=== PATIENT | male | born 1930 | race Caucasian/White ===

== ENCOUNTER 2017-09-21 13:57 | Inpatient (IN) | payer MEDICARE ==
[~2017-09-21] VITALS: Ht 172.7 cm; Wt 66.7 kg
--- NOTE | 2017-09-21 | NUR ---
notes: pt is resting on his side. stable vital sign. explained to him his medication. agree and understand. needs attended. bed alarm on. call light in reach. pt blood sugar is 72, pt is given a snack. needs attended. call light in reach. will monitor. Addendum: 09/22/17 at 0049 by Hitesh Fritz RN time is intended for 09-21-2017 at 2200
[~2017-09-21 13:57] MED LIST: AMOX-426 PO; ASA81 PO; ATEN50TA PO; CARV25TA55 PO; DABI150C PO; FINA5TAB3 PO; FURO-150 PO; GLIM1TAB PO; GUAI100S14 PO; IPRA4AER INH; L.RH1CAP PO; LISI-600 PO; ONDA4TAB5 PO; POTA-118 PO; SIMV40TA2 PO; SPIR25TA PO; TAMS0.4C96 PO
[2017-09-21 14:00] VITALS: BP_SYST 134
--- NOTE | 2017-09-21 14:01 | NUR ---
Placed in room 03 . Placed on cafeteria monitor, blood pressure machine and pulse oximeter. To gown for exam. Side rails up.
--- NOTE | 2017-09-21 14:05 | NUR ---
Pt brought by daughter , Luis&Ox4, pt presents to ER with SOB, speaking in short sentences, weakness for the last three days, chest retractions noted, afebrile, skin pink and warm, VSS at this time.
--- NOTE | 2017-09-21 14:10 | NUR ---
Dr Whitten at bedside examining patient
[2017-09-21] MEDS ORDERED: LEVOFLOXACIN 500 MG/D5W 100 ML IV ONE (14:30)
[2017-09-21] MEDS ORDERED: ALBUTEROL SULFATE 0.083% 2.5 MG/3 ML VIAL.NEB INH ONE (14:30)
--- NOTE | 2017-09-21 14:35 | NUR ---
Respiratory at bedside to administer breathing tx.
[2017-09-21 14:45] LABS: BASOPHILS % (AUTO) 0.3 % (0.0-2.0); HEMATOCRIT 41.5 % (36-54); HEMOGLOBIN 13.7 g/dL (14.0-18.0); LYMPHOCYTES # (AUTO) 1.5 K/uL (1.0-5.5); LYMPHOCYTES % (AUTO) 30.1 % (20.5-51.5); MEAN CORPUSCULAR HEMOGLOBIN 27 pg (27-31); MEAN CORPUSCULAR HGB CONC 33 % (32-36); MEAN CORPUSCULAR VOLUME 82 fL (79.0-98.0); MONOCYTES # (AUTO) 0.3 K/uL (0.0-1.0); MONOCYTES % (AUTO) 6.2 % (1.7-9.3); NEUTROPHILS % (AUTO) 62.4 % (40.0-70.0); PLATELET COUNT (AUTO) 137 K/uL (130-430); RED BLOOD CELL COUNT(AUTO) 5.05 MIL/uL (4.2-6.2); RED CELL DISTRIBUTION WIDTH 16.2 % (9.0-15.0); WHITE BLOOD COUNT (AUTO) 4.9 K/uL (4.8-10.8)
[2017-09-21 14:54] LABS: ANION GAP 5 (5-15); CALCIUM 9.5 mg/dL (8.4-11.0); CHLORIDE 101 mmol/L (98-107); CREATININE 1.43 mg/dL (0.55-1.30); GLUCOSE 156 mg/dL (70-99); POTASSIUM 4.2 mmol/L (3.5-5.1); SODIUM SERUM 134 mmol/L (136-145); UREA NITROGEN, BLOOD 18 mg/dL (8-21)
[2017-09-21 14:55] LABS: INR 1.5 (0.80-1.20); PROTHROMBIN TIME 15.2 SECS (9.5-12.5)
[2017-09-21 14:59] LABS: ALANINE AMINOTRANSFERASE 22 U/L (12-78); ALBUMIN 3.6 g/dL (3.4-4.8); ASPARTATE AMINOTRANSFERASE 15 U/L (10-37); TOTAL BILIRUBIN 1.7 mg/dL (0.0-1.0)
[2017-09-21 15:03] LABS: BILIRUBIN,URINE NEGATIVE (NEGATIVE); BLOOD, URINE NEGATIVE (NEGATIVE); CLARITY/URINE CLEAR (CLEAR); COLOR,URINE YELLOW (YELLOW); GLUCOSE,URINE NEGATIVE (NEGATIVE); KETONES,URINE NEGATIVE (NEGATIVE); LEUKOCYTE ESTERASE ,URINE NEGATIVE (NEGATIVE); NITRITE, URINE NEGATIVE (NEGATIVE); PROTEIN URINE NEGATIVE (NEGATIVE); UROBILINOGEN,URINE 0.2 (0.2-1.0)
--- NOTE | 2017-09-21 15:50 | NUR ---
Dr. Whitten at bedside speaking to pt and family.
[2017-09-21] MEDS ORDERED: ONDANSETRON HCL 4 MG/2 ML VIAL IVP ONE (16:00)
[2017-09-21] MEDS ORDERED: FUROSEMIDE 40 MG/4 ML VIAL IVP ONE (16:00)
[2017-09-21] MEDS ORDERED: NACL 0.9% 1,000 ML IV ONE (16:15)
[2017-09-21] MEDS ORDERED: ATENOLOL 50 MG TABLET (TENORMIN) PO SCH (16:15)
[2017-09-21] MEDS ORDERED: IPRATROPIUM/ALBUTEROL SULFATE 3 ML AMPUL.NEB INH PRN (16:15)
--- NOTE | 2017-09-21 16:28 | NUR ---
Patient will be admitted to care of Dr. Gonsalves. Admitted to tele unit. Will go to room 112B. Belongings list completed. Summary report printed. Report will be given at bedside.
[2017-09-21] MEDS ORDERED: MUPIROCIN 2% TOPICAL OINTMENT 22 GM NS PRN (16:30)
[2017-09-21] MEDS ORDERED: MORPHINE 2 MG/ML INJ. SYRINGE IVP PRN ×2 (16:30)
[2017-09-21] MEDS ORDERED: NACL 0.9% 1,000 ML IV SCH (16:30)
[2017-09-21] MEDS ORDERED: MAGNESIUM SULFATE 50 ML IV PRN (16:30)
[2017-09-21] MEDS ORDERED: ONDANSETRON HCL 4 MG/2 ML VIAL IVP PRN (16:30)
[2017-09-21] MEDS ORDERED: DOCUSATE SODIUM 100 MG CAPSULE PO PRN (16:30)
[2017-09-21] MEDS ORDERED: LORazepam 2 MG/ML VIAL IVP PRN (16:30)
[2017-09-21] MEDS ORDERED: ACETAMINOPHEN 325 MG TABLET PO PRN (16:30)
[2017-09-21] MEDS ORDERED: POTASSIUM CHLORIDE 20 MEQ TAB.PRT.SR PO PRN (16:30)
[2017-09-21] MEDS: LORATADINE 10 MG TABLET PO ONE ×2 (16:45→18:23)
[2017-09-21] MEDS ORDERED: DEXTROSE 50% JECT 50 ML DISP.SYRIN IVP PRN (16:45)
[2017-09-21] MEDS ORDERED: FAMOTIDINE 20 MG TABLET PO ONE (16:45)
[2017-09-21 16:54] LABS: FREE T4 (FREE THYROXINE) 0.8 ng/dL (0.6-1.6); THYROID STIMULATING HORMONE 1.96 uIu/mL (0.34-4.82)
[2017-09-21] MEDS ORDERED: POTASSIUM CHLORIDE 10 MEQ TAB.PRT.SR PO ONE (17:00)
[2017-09-21] MEDS ORDERED: SPIRONOLACTONE 25 MG TABLET (ALDACTONE) PO ONE (17:00)
[2017-09-21] MEDS ORDERED: methylPREDNISolone SOD SUCC 40 MG/ML VIAL IVP ONE (17:00)
[2017-09-21] MEDS ORDERED: TAMSULOSIN HCL 0.4 MG CAP PO ONE (17:00)
[2017-09-21] MEDS ORDERED: SIMVASTATIN 40 MG TABLET PO ONE (17:00)
[2017-09-21] MEDS ORDERED: LISINOPRIL 20 MG TABLET PO ONE (17:00)
--- NOTE | 2017-09-21 17:01 | NUR ---
Admission: Received from ER on a gurney with the diagnosis of Acute Respiratory Failure. Patient is alert and oriented, ambulatory. Accompanied by daughter Marky Davis. Oriented to room and unit
--- NOTE | 2017-09-21 17:11 | NUR ---
CONSULTATION PAGED REASON FOR CONSULTATION:ACUTE RESPIRATORY FAILURE WAS CONSULT CALLED?Y PERSON WHO WAS NOTIFIED:EMILY CONSULTING PHYSICIAN:BLAKE GALINDO (MIKE WILLIS LOIN TRIMMER) WHANAU SUPPORT WORKER SPECIALTY:PULMONARY WHANAU SUPPORT WORKER PHONE NUMBER:[phone] ORDERING PHYSICIAN:
--- NOTE | 2017-09-21 17:14 | NUR ---
CONSULTATION PAGED REASON FOR CONSULTATION:WORSENING CHF WAS CONSULT CALLED?Y PERSON WHO WAS NOTIFIED:EMILY CONSULTING PHYSICIAN:SUAD BUCK BUTCHER MEAT SPECIALTY:CARDIO BUTCHER MEAT PHONE NUMBER:[phone] ORDERING PHYSICIAN:
[2017-09-21 17:25] VITALS: BP_SYST 113
[2017-09-21 17:28] VITALS: BP_SYST 132
--- NOTE | 2017-09-21 17:30 | NUR ---
INITIAL ASSESSMENT: INITIAL ASSESSMENT DONE. ON O2 2L/NC,GOOD SATURATION. DAUGHTER AT THE BEDSIDE.NO COMPLAINED MADE.
[2017-09-21] MEDS: INSULIN ASPART 100 UNITS/ML, 10 ML VIAL (NovoLOG) SUBCUT PRN (18:27)
--- NOTE | 2017-09-21 18:27 | NUR ---
BLOOD SUGAR: BLOOD SUGAR TAKEN WITH INSULIN COVERAGE GIVEN PER SLIDING SCALE.
--- NOTE | 2017-09-21 18:57 | NUR ---
CLOSING NOTES: PATIENT EATING DINNER. CALL LIGHT WITH IN REACH. BED LOCKED AT LOWEST POSITION. CONTINUE TO MONITOR.
--- NOTE | 2017-09-21 19:50 | NUR ---
initial notes: pt is awake, alert, oriented x 3, on his bed laying down to his side. comfortable. no sob, not distress. no pain. vital are stable and wnl. explained poc tonight and his medication. pt is requesting for his sleeping pills, will page for order. neds attended. melissa light in reach. side rails up. lowest bed position. will monitor.
[2017-09-21 19:52] VITALS: BP_SYST 121
[2017-09-21] MEDS: IPRATROPIUM/ALBUTEROL SULFATE 3 ML AMPUL.NEB INH SCH (20:01)
[2017-09-21] MEDS: BUDESONIDE 0.5 MG/2 ML AMPUL.NEB INH SCH (20:13)
--- NOTE | 2017-09-21 20:31 | NUR ---
paged paged for Dr Gonsalves, dialed . picked up call himself.
--- NOTE | 2017-09-21 20:35 | NUR ---
dr. hernandez call back- told that the pt is asking for sleeping pills, md order ambien 5mg po prn for insomia.
[2017-09-21] MEDS: methylPREDNISolone SOD SUCC 40 MG/ML VIAL IVP SCH (21:32)
[2017-09-21] MEDS: FAMOTIDINE 20 MG TABLET PO SCH (21:34)
[2017-09-21] MEDS: CARVEDILOL 25 MG TABLET (COREG) PO SCH (21:34)
[2017-09-21] MEDS: ZOLPIDEM TARTRATE 5 MG TABLET PO PRN (21:34)
[2017-09-21] MEDS: PIPERACILLIN/TAZOBACTAM 2.25 GM in NS 50 ML IV SCH (21:35)
[2017-09-21] MEDS: DABIGATRAN ETEXILATE MESYLATE 75 MG CAPSULE PO SCH (21:36)
--- NOTE | 2017-09-22 00:49 | NUR ---
notes: resting, comfortable. bed alarm on. call light in reach. will monitor.
[2017-09-22 00:50] VITALS: BP_SYST 135
[2017-09-22] MEDS: IPRATROPIUM/ALBUTEROL SULFATE 3 ML AMPUL.NEB INH SCH ×6 (01:15→19:58)
--- NOTE | 2017-09-22 02:00 | NUR ---
round notes: pt is resting, no sob. comfortable. bed alarm on. call light in reach. will monitor.
--- NOTE | 2017-09-22 03:45 | NUR ---
round: pt wakes up. want to use bathroom. assisted to bathroom. bring back to bed flaquita wilde. needs attended. will monitor.
[2017-09-22] MEDS: methylPREDNISolone SOD SUCC 40 MG/ML VIAL IVP SCH ×3 (05:29→20:24)
[2017-09-22] MEDS: PIPERACILLIN/TAZOBACTAM 2.25 GM in NS 50 ML IV SCH ×3 (05:29→21:45)
--- NOTE | 2017-09-22 06:00 | NUR ---
round notes: pt is resting. no sob. not distress. am antibiotic given. side rails up. lowest bed position. bed alarm on. will continue to monitor.
[2017-09-22] MEDS: GLIMEPIRIDE 2 MG TABLET PO SCH (06:36)
[2017-09-22] MEDS: INSULIN ASPART 100 UNITS/ML, 10 ML VIAL (NovoLOG) SUBCUT PRN ×4 (06:39→20:26)
[2017-09-22 06:58] LABS: ANION GAP 8 (5-15); CALCIUM 9.3 mg/dL (8.4-11.0); CHLORIDE 101 mmol/L (98-107); CREATININE 1.45 mg/dL (0.55-1.30); GLUCOSE 178 mg/dL (70-99); POTASSIUM 4.2 mmol/L (3.5-5.1); SODIUM SERUM 132 mmol/L (136-145); UREA NITROGEN, BLOOD 25 mg/dL (8-21)
[2017-09-22 07:00] LABS: BASOPHILS % (AUTO) 0.4 % (0.0-2.0); EOSINOPHILS # (AUTO) 0.1 K/uL (0.0-0.4); EOSINOPHILS % (AUTO) 0.9 % (0.0-4.0); HEMATOCRIT 39.4 % (36-54); HEMOGLOBIN 13.1 g/dL (14.0-18.0); LYMPHOCYTES # (AUTO) 0.5 K/uL (1.0-5.5); LYMPHOCYTES % (AUTO) 7.9 % (20.5-51.5); MEAN CORPUSCULAR HEMOGLOBIN 28 pg (27-31); MEAN CORPUSCULAR HGB CONC 33 % (32-36); MEAN CORPUSCULAR VOLUME 83 fL (79.0-98.0); MONOCYTES % (AUTO) 0.6 % (1.7-9.3); NEUTROPHILS # (AUTO) 5.8 K/uL (1.8-7.7); NEUTROPHILS % (AUTO) 90.2 % (40.0-70.0); PLATELET COUNT (AUTO) 121 K/uL (130-430); RED BLOOD CELL COUNT(AUTO) 4.72 MIL/uL (4.2-6.2); RED CELL DISTRIBUTION WIDTH 16.2 % (9.0-15.0)
[2017-09-22 07:02] LABS: CHOLESTEROL 139 mg/dL (<200); HDL CHOLESTEROL 53 mg/dL (>45); LDL CHOLESTEROL 79 mg/dL (<100); TRIGLYCERIDES 26 mg/dL (30-150)
[2017-09-22] MEDS: BUDESONIDE 0.5 MG/2 ML AMPUL.NEB INH SCH (07:28)
--- NOTE | 2017-09-22 07:30 | NUR ---
AM ROUNDS: BEDSIDE REPORT GIVEN BY NIGHT NURSE ALFONZO Jaime PATIENT IN THE TOILET. NO DISTRESS. THEN PATIENT WENT BACK TO HIS BED,WITH STEADY GAIT. CONTINUE TO MONITOR.BED ALARM ON. CALL LIGHT WITH IN REACH. BED LOCKED AT LOWEST POSITION.
[2017-09-22 07:35] LABS: WHITE BLOOD COUNT (AUTO) 6.4 K/uL (4.8-10.8)
--- NOTE | 2017-09-22 07:41 | NUR ---
closing: pt is awake, alert.assisted to bathroom. ivf infusing well. sugar check taken and covered per sliding scale. needs attended the whole shift. assisted back to his bed. needs attended. call light in reach. pt is ready for breakfast. bed side report given to am rn.
[2017-09-22 08:17] VITALS: BP_SYST 133
[2017-09-22] MEDS ORDERED: LORATADINE 10 MG TABLET PO SCH (09:00)
[2017-09-22] MEDS ORDERED: FUROSEMIDE 20 MG TABLET PO SCH (09:00)
[2017-09-22] MEDS: ASPIRIN 81 MG TAB.CHEW PO SCH (09:31)
[2017-09-22] MEDS: TAMSULOSIN HCL 0.4 MG CAP PO SCH (09:31)
[2017-09-22] MEDS: SPIRONOLACTONE 25 MG TABLET (ALDACTONE) PO SCH (09:31)
[2017-09-22] MEDS: LISINOPRIL 20 MG TABLET PO SCH (09:32)
[2017-09-22] MEDS: DABIGATRAN ETEXILATE MESYLATE 75 MG CAPSULE PO SCH ×2 (09:32→20:25)
[2017-09-22] MEDS: SIMVASTATIN 40 MG TABLET PO SCH (09:33)
[2017-09-22] MEDS: FAMOTIDINE 20 MG TABLET PO SCH ×2 (09:33→20:26)
[2017-09-22] MEDS: CARVEDILOL 25 MG TABLET (COREG) PO SCH ×2 (09:33→20:27)
[2017-09-22] MEDS: POTASSIUM CHLORIDE 10 MEQ TAB.PRT.SR PO SCH (09:34)
--- NOTE | 2017-09-22 10:05 | NUR ---
RN ROUNDING: PATIENT AMBULATING IN THE HALLWAY,WITH STEADY GAIT.THEN BACK TO HIS ROOM. NO SOB NOTED.
[2017-09-22] MEDS ORDERED: FUROSEMIDE 40 MG/4 ML VIAL IVP ONE (10:15)
--- NOTE | 2017-09-22 11:06 | NUR ---
BLOOD SUGAR: BLOOD SUGAR TAKEN,WITH INSULIN COVERAGE GIVEN PER SLIDING SCALE.NO COMPLICATIONS NOTED.
[2017-09-22 11:11] VITALS: BP_SYST 122
[2017-09-22] MEDS: FINASTERIDE 5 MG TABLET (PROSCAR) PO SCH (11:11)
--- NOTE | 2017-09-22 14:25 | NUR ---
RN ROUNDS: RESTING. STABLE NO COMPLAINED MADE.
[2017-09-22 15:20] VITALS: BP_SYST 114
--- NOTE | 2017-09-22 16:10 | NUR ---
AMBULATE: PATIENT AMBULATED WITH HIS DAUGHTER TO THE HALLWAY.THEN ACCOMPANIED PATIENT BACK TO HIS ROOM. NO SOB.
[2017-09-22] MEDS: PEG 400/HYPROMELLOSE/GLYCERIN 15 ML DROPS OP SCH ×2 (17:53→20:27)
--- NOTE | 2017-09-22 17:57 | NUR ---
BLOOD SUGAR: BLOOD SUGAR TAKEN,WITH INSULIN COVERAGE GIVEN PER SLIDING SCALE.NO COMPLICATIONS NOTED.
--- NOTE | 2017-09-22 18:50 | NUR ---
CLOSING NOTES: PATIENT ON THE BED. FINISHED HIS DINNER. NO NEEDS THIS TIME. CALL LIGHT WITH IN REACH. BED LOCKED AT LOWEST POSITION.
--- NOTE | 2017-09-22 19:15 | NUR ---
OPENING NOTES Late entry due to patient care. Bedside report received from day shift nurse. Patient received sitting up at side of the bed starting outside the window. Patient is AOx3, no complaints of pain. No s/s of acute distress. Breathing is even and unlabored. Skin is warm and dry to touch, no signs of hypoglycemia. Call light is with patient, instructed to call for any assistance, patient verbalized understanding. Will continue to monitor.
[2017-09-22 20:00] VITALS: BP_SYST 110
[2017-09-22] MEDS ORDERED: FUROSEMIDE 40 MG/4 ML VIAL IVP SCH (21:00)
--- NOTE | 2017-09-22 21:00 | NUR ---
ROUNDS Patient sitting up in bed at this time, resting. No s/s of acute distress. Patient denies any pain. Breathing is even and unlabored. Skin warm and dry to touch, no signs of hypoglycemia noted. Snacks offered but patient refused. IV site shows no signs of infection or infiltration, patent. Call light with patient, instructed to call for any assistance, patient verbalized understanding. Will continue to monitor.
[2017-09-22] MEDS: ZOLPIDEM TARTRATE 5 MG TABLET PO PRN (22:26)
--- NOTE | 2017-09-22 22:26 | NUR ---
SLEEPING PILL Patient requested to have his sleeping pill, ambien administered per PRN orders. Will continue to monitor and reassess.
[2017-09-23] VITALS: BP_SYST 109
--- NOTE | 2017-09-23 | NUR ---
ROUNDS Patient lying in bed, awake. Patient states that the Ambien is ineffective. Repositioned patient for comfort and turned on some music. Call light with patient. Will continue to monitor and reassess.
--- NOTE | 2017-09-23 02:00 | NUR ---
ROUNDS Patient sitting up in bed at this time. No s/s of acute distress. Breathing even and unlabored. Patient offered some snacks and milk. Call light with patient. Will continue to monitor and reassess.
--- NOTE | 2017-09-23 03:30 | NUR ---
WALKING IN THE HALLWAY Patient walking down the hallway assisted by RNTequila. No s/s of acute distress. No SOB. Patient assisted back to his bed. Call light with patient. Will continue to monitor.
--- NOTE | 2017-09-23 05:10 | NUR ---
ROUNDS Patient in bed sleeping at this time. No signs of discomfort noted. Chest rise and fall even bilaterally. Call light with patient. Will continue to monitor.
[2017-09-23] MEDS: INSULIN ASPART 100 UNITS/ML, 10 ML VIAL (NovoLOG) SUBCUT PRN (06:11)
[2017-09-23] MEDS: GLIMEPIRIDE 2 MG TABLET PO SCH (06:12)
[2017-09-23] MEDS: PIPERACILLIN/TAZOBACTAM 2.25 GM in NS 50 ML IV SCH (06:12)
--- NOTE | 2017-09-23 06:57 | NUR ---
CLOSING NOTES Patient in bed sleeping at this time. No s/s of acute distress noted. Breathing is even and unlabored. HOB is raised. IV site shows no signs of infiltration or infection. No active bleeding noted. All of patient's needs met throughout shift. Fall and safety precautions maintained throughout shift. Will continue to monitor until patient care is endorsed to oncoming day shift nurse.
[2017-09-23 07:22] LABS: ANION GAP 9 (5-15); CALCIUM 9.6 mg/dL (8.4-11.0); CHLORIDE 100 mmol/L (98-107); CREATININE 1.64 mg/dL (0.55-1.30); GLUCOSE 178 mg/dL (70-99); POTASSIUM 4.1 mmol/L (3.5-5.1); SODIUM SERUM 136 mmol/L (136-145); UREA NITROGEN, BLOOD 39 mg/dL (8-21)
[2017-09-23 07:29] LABS: BASOPHILS % (AUTO) 0.3 % (0.0-2.0); EOSINOPHILS % (AUTO) 0.1 % (0.0-4.0); HEMATOCRIT 38.7 % (36-54); HEMOGLOBIN 12.9 g/dL (14.0-18.0); LYMPHOCYTES # (AUTO) 0.5 K/uL (1.0-5.5); LYMPHOCYTES % (AUTO) 4.5 % (20.5-51.5); MEAN CORPUSCULAR HEMOGLOBIN 28 pg (27-31); MEAN CORPUSCULAR HGB CONC 33 % (32-36); MEAN CORPUSCULAR VOLUME 82 fL (79.0-98.0); MONOCYTES # (AUTO) 0.2 K/uL (0.0-1.0); MONOCYTES % (AUTO) 2.1 % (1.7-9.3); NEUTROPHILS # (AUTO) 10.7 K/uL (1.8-7.7); PLATELET COUNT (AUTO) 124 K/uL (130-430); RED BLOOD CELL COUNT(AUTO) 4.71 MIL/uL (4.2-6.2); RED CELL DISTRIBUTION WIDTH 15.9 % (9.0-15.0); WHITE BLOOD COUNT (AUTO) 11.4 K/uL (4.8-10.8)
[2017-09-23 07:31] LABS: ALANINE AMINOTRANSFERASE 21 U/L (12-78); ALBUMIN 3.3 g/dL (3.4-4.8); ASPARTATE AMINOTRANSFERASE 15 U/L (10-37); PHOSPHORUS 4.2 mg/dL (2.7-4.5); TOTAL BILIRUBIN 0.9 mg/dL (0.0-1.0)
[2017-09-23 07:50] VITALS: BP_SYST 102
--- NOTE | 2017-09-23 07:50 | NUR ---
INITIAL ROUNDS Received pt AAOx3, forgetful at times, no s/s resp distress, no c/o pain or discomfort. Pt stated he is very tired this morning-per overnight caregiver report, pt was up most of the night walking around the unit with steady gait. Plan of care for the day reviewed with pt-pt stated he hopes he can go home today. Pain management, skin, and safety discussed-teach back down-will continue to reinforce all teachings. Call light within reach.
[2017-09-23] MEDS: TAMSULOSIN HCL 0.4 MG CAP PO SCH (10:21)
[2017-09-23] MEDS: SIMVASTATIN 40 MG TABLET PO SCH (10:21)
[2017-09-23] MEDS: FAMOTIDINE 20 MG TABLET PO SCH (10:22)
[2017-09-23] MEDS: ASPIRIN 81 MG TAB.CHEW PO SCH (10:22)
[2017-09-23] MEDS: POTASSIUM CHLORIDE 10 MEQ TAB.PRT.SR PO SCH (10:22)
[2017-09-23] MEDS: SPIRONOLACTONE 25 MG TABLET (ALDACTONE) PO SCH (10:22)
[2017-09-23] MEDS: CARVEDILOL 25 MG TABLET (COREG) PO SCH (10:23)
[2017-09-23] MEDS: LISINOPRIL 20 MG TABLET PO SCH (10:24)
[2017-09-23] MEDS: FINASTERIDE 5 MG TABLET (PROSCAR) PO SCH (10:24)
[2017-09-23] MEDS: methylPREDNISolone SOD SUCC 40 MG/ML VIAL IVP SCH (10:24)
[2017-09-23] MEDS: PEG 400/HYPROMELLOSE/GLYCERIN 15 ML DROPS OP SCH (10:26)
[2017-09-23] MEDS: DABIGATRAN ETEXILATE MESYLATE 75 MG CAPSULE PO SCH (10:30)
--- NOTE | 2017-09-23 11:03 | NUR ---
MD VISIT/AMA Pt seen by Dr. Horowitz twice-MD informed pt that he needs to stay for 1 more day of IV antibiotics-pt stated he needs to go home and is insisting on leaving. Pt's daughter Susan called and informed, she spoke with her father who still insists on leaving.
--- NOTE | 2017-09-23 12:21 | NUR ---
AMA: Patient does not wish to proceed with medical care recommended by Dr. Horowitz. Patient & patient's daughter Gale given information related to possible complications, up to and including , which could occur as a result of leaving hospital at this time. Patient verbalized his understanding of risks involved leaving against medical advice. Patient has signed AMA form. Patient's daughter picked up patient with his belongings. Patient left floor ambulatory in no distress.
[2017-09-23] MEDS ORDERED: FUROSEMIDE 40 MG TABLET PO SCH (21:00)
[2017-09-24 04:06] LABS: T4 (THYROXINE) 8.5 ug/dL (4.5-12.0)
== END 2017-09-23 12:21 | disposition left against medical advice (07) | DRG 177 ==
LOC: SED 13:57 → STU 16:08
PROVIDERS: ADMIT Family Medicine; ATTEND Family Medicine
DX: J69.0 Pneumonitis due to inhalation of food and vomit (principal); N17.0 Acute kidney failure with tubular necrosis; I50.43 Acute on chronic combined systolic (congestive) and diastolic (congestive) heart failure; J96.01 Acute respiratory failure with hypoxia; I13.0 Hypertensive heart and chronic kidney disease with heart failure and stage 1 through stage 4 chronic kidney disease, or unspecified chronic kidney disease; J44.9 Chronic obstructive pulmonary disease, unspecified; I25.10 Atherosclerotic heart disease of native coronary artery without angina pectoris; E78.5 Hyperlipidemia, unspecified; N40.0 Benign prostatic hyperplasia without lower urinary tract symptoms; I48.2 Chronic atrial fibrillation; E11.22 Type 2 diabetes mellitus with diabetic chronic kidney disease; N28.1 Cyst of kidney, acquired; I25.5 Ischemic cardiomyopathy; F03.90 Unspecified dementia, unspecified severity, without behavioral disturbance, psychotic disturbance, mood disturbance, and anxiety; J06.9 Acute upper respiratory infection, unspecified; E11.65 Type 2 diabetes mellitus with hyperglycemia; Z53.21 Procedure and treatment not carried out due to patient leaving prior to being seen by health care provider; Z79.899 Other long term (current) drug therapy; Z95.0 Presence of cardiac pacemaker; Z79.51 Long term (current) use of inhaled steroids; Z79.82 Long term (current) use of aspirin; I25.2 Old myocardial infarction; Z95.1 Presence of aortocoronary bypass graft; Z87.01 Personal history of pneumonia (recurrent); Z82.3 Family history of stroke; Z90.49 Acquired absence of other specified parts of digestive tract; Z82.0 Family history of epilepsy and other diseases of the nervous system; Z79.02 Long term (current) use of antithrombotics/antiplatelets; Z87.891 Personal history of nicotine dependence
CPT/HCPCS: 36415; 36600; 71045; 74018; 76604; 76700-TC; 80048; 80053; 80061; 81003; 82140-TC; 82150-TC; 82803-TC; 82962; 83605; 83615-TC; 83690-TC; 83735-TC; 83880; 84100-TC; 84436; 84439; 84443-TC; 84479; 84480; 84484; 85025; 85610-TC; 87040-TC; 93005; 94640; 94760; 96365; 96375; 99285; J1030; J1815; J1940; J1956; J2270; J2405; J2543; J7030; J7613; J7620; J7626

== ENCOUNTER 2017-12-07 18:00 | Inpatient (IN) | payer MEDICARE ==
[~2017-12-07] VITALS: Ht 172.7 cm; Wt 66.7 kg
[2017-12-07 18:00] VITALS: BP_SYST 114
[~2017-12-07 18:00] MED LIST changes: -AMOX-426 PO; -ASA81 PO; -ATEN50TA PO; -GUAI100S14 PO; -L.RH1CAP PO; -POTA-118 PO; -SPIR25TA PO
--- NOTE | 2017-12-07 18:00 | NUR ---
Pt placed in hallway by Haim QUIROGA
--- NOTE | 2017-12-07 18:20 | NUR ---
PT COMPLAINS OF NAUSEA AND DIZZINESS SINCE THIS MORNING, DENIES VOMITING. PATIENT STATES SHORTNESS OF BREATHE WHEN MOVING FROM CHAIR TO GURNEY. PATIENT FAMILY AT BEDSIDE. PATIENT ABLE TO SPEAK IN FULL SENTENCES AND VERBALIZE NEEDS.
--- NOTE | 2017-12-07 18:40 | NUR ---
Patient moved to Bed 4.
--- NOTE | 2017-12-07 18:55 | NUR ---
PT ALERT, ABLE TO EXPRESS BASIC NEEDS, AND ATTENDED, O2 VIA NASAL CANNULA IN USE, DAUGHTER AT BEDSIDE, "HE HAD THE SAME PROBLEM WHEN HE WAS TAKEN HERE AND HE HAD PNEUMONIA".
--- NOTE | 2017-12-07 19:28 | NUR ---
ASSUMED CARE FROM ARUN MITTAL
[2017-12-07] MEDS ORDERED: NACL 0.9% 1,000 ML IV ONE (19:36)
[2017-12-07] MEDS ORDERED: ASPIRIN 81 MG TAB.CHEW PO ONE (19:45)
[2017-12-07 20:04] LABS: BASOPHILS % (AUTO) 0.6 % (0.0-2.0); EOSINOPHILS % (AUTO) 0.3 % (0.0-4.0); HEMATOCRIT 40.5 % (36-54); HEMOGLOBIN 12.8 g/dL (14.0-18.0); LYMPHOCYTES # (AUTO) 1.1 K/uL (1.0-5.5); LYMPHOCYTES % (AUTO) 22.6 % (20.5-51.5); MEAN CORPUSCULAR HEMOGLOBIN 27 pg (27-31); MEAN CORPUSCULAR HGB CONC 32 % (32-36); MEAN CORPUSCULAR VOLUME 84 fL (79.0-98.0); MONOCYTES # (AUTO) 0.3 K/uL (0.0-1.0); MONOCYTES % (AUTO) 6.5 % (1.7-9.3); NEUTROPHILS # (AUTO) 3.6 K/uL (1.8-7.7); PLATELET COUNT (AUTO) 120 K/uL (130-430); RED BLOOD CELL COUNT(AUTO) 4.84 MIL/uL (4.2-6.2); RED CELL DISTRIBUTION WIDTH 15.5 % (9.0-15.0)
[2017-12-07 20:18] LABS: ANION GAP 7 (5-15); CALCIUM 9.7 mg/dL (8.4-11.0); CHLORIDE 101 mmol/L (98-107); GLUCOSE 164 mg/dL (70-99); POTASSIUM 4.9 mmol/L (3.5-5.1); SODIUM SERUM 133 mmol/L (136-145); UREA NITROGEN, BLOOD 23 mg/dL (8-21)
[2017-12-07 20:26] LABS: ALANINE AMINOTRANSFERASE 17 U/L (12-78); ALBUMIN 3.4 g/dL (3.4-4.8); ASPARTATE AMINOTRANSFERASE 17 U/L (10-37); TOTAL BILIRUBIN 1.2 mg/dL (0.0-1.0)
[2017-12-07] MEDS ORDERED: PIPERACILLIN/TAZO 3.375 GM in NS 50 ML IV ONE (21:00)
[2017-12-07] MEDS ORDERED: FUROSEMIDE 40 MG/4 ML VIAL IVP ONE (21:15)
[2017-12-07] MEDS ORDERED: NITROGLYCERIN 1 INCH (GM) OINT. TP ONE (21:15)
--- NOTE | 2017-12-07 21:37 | NUR ---
Medication reconciliation completed with information provided by patient. Any prior medication reconciliation on file was reviewed and corrected.
[2017-12-07] MEDS ORDERED: PIPERACILLIN/TAZOBACTAM 3.375 GM/VIAL (ZOSYN) IV ONE (21:42)
--- NOTE | 2017-12-07 22:07 | NUR ---
ADMIT NOTE Received pt from XUAN Anand RN to the floor with a diagnosis of PNA and CHF. Admission process initiated. patient oriented to pain management, safety and call light-teach back done.
[2017-12-07 22:21] VITALS: BP_SYST 111
--- NOTE | 2017-12-07 22:50 | NUR ---
ENDORSED CARE Patient is stable, currently using urinal to void. Fall precautions in place, socks and yellow fall risk armband applied. Report and care endorsed to Leonora Barry RN.
--- NOTE | 2017-12-07 22:51 | NUR ---
RECEIVED BEDSIDE REPORT AT BEDSIDE.PATIENT TRYING TO REPOSITIONED HIMSELF FOR COMFORTS.SAT UP TO HIGH FOWLERS AND PLACED OXYGEN TO EASE LABORED BREATHING. VOIDED VIA URINAL CLEAR TERESITA COLOR. IVF OF NS FROM ER INFUSING AT 100ML/HR.TO LFA #2O GAUGE. SITE CLEAR. SATURATION BY RT IS 97%.INSTRUCTED HOW TO USE CALL LIGHT AND BED FUNCTIONS.PATIENT AWAKE ORIENTED X2 ,FORGETFUL OF TIME . SCABS TO BOTH LEGS MORE ON LEFT HIPS. CODE STATUS DNR. HAS PACEMAKER TO LEFT UPPER CHEST. WILL MONITOR CLOSELY.
--- NOTE | 2017-12-07 23:10 | NUR ---
PAGED Luis PIÑAFOR ADMISSION ORDERS AND MED RECONCILIATION.
--- NOTE | 2017-12-07 23:30 | NUR ---
DR. WOOD ANSWERED PAGE. INFORMED CURRENT PATIENT CONDITION ,AND NEED OF MEDS REC. STATED WILL TAKE CARE OF IT.
[2017-12-07] MEDS ORDERED: ONDANSETRON 4 MG ODT TAB PO PRN (23:45)
[2017-12-08 00:30] VITALS: BP_SYST 114
--- NOTE | 2017-12-08 00:30 | NUR ---
ORDERS ARE IN COMPUTER ALREADY.
[2017-12-08] MEDS: IPRATROPIUM/ALBUTEROL SULFATE 3 ML AMPUL.NEB (DUONEB) INH PRN ×2 (01:23→21:09)
--- NOTE | 2017-12-08 01:50 | NUR ---
ASSISTED AT BEDSIDE TO STAND UP TO VOID. TOLERATED STANDING UP. HAS EXERTIONAL DYSPNEA WHEN BACK TO BED WITH NO OXYGEN. O2 PLACED ON ,EDUCATED TO USE AT ALL TIMES. EXTENSION TUBING CONNECTED..
[2017-12-08 02:12] VITALS: BP_SYST 114
--- NOTE | 2017-12-08 07:00 | NUR ---
CLOSING: STANDS UP TO VOID ,TAKES 10 MIN TO VOID STANDING. WITH EXERTIONAL DYSPNEA WHEN BACK TO BED. NO S/S OF ACUTE DISTRESS. CALL LIGHT WITHIN REACH. BED ALARM ON. BED IN LOW POSITION.
--- NOTE | 2017-12-08 07:20 | NUR ---
Opening Note patient using urinal at bedside, assisted to bedside commode, placed on nasal cannula because experiencing SOB, no complaints of pain at this, educated patient on use of call light for assistance, verbalized understanding, call light and bedside table left within reach, will be back to check on patient
[2017-12-08] MEDS: TAMSULOSIN HCL 0.4 MG CAP PO SCH ×2 (08:00→21:14)
[2017-12-08] MEDS: GLIMEPIRIDE 2 MG TABLET PO SCH (08:02)
[2017-12-08] MEDS: FINASTERIDE 5 MG TABLET (PROSCAR) PO SCH (08:02)
[2017-12-08] MEDS: CARVEDILOL 25 MG TABLET (COREG) PO SCH (08:02)
[2017-12-08] MEDS: LISINOPRIL 20 MG TABLET PO SCH (08:03)
[2017-12-08] MEDS: DABIGATRAN ETEXILATE MESYLATE 75 MG CAPSULE PO SCH ×2 (08:04→21:18)
--- NOTE | 2017-12-08 08:10 | NUR ---
Med Pass patient educated regarding meds, verbalized understanding, refused BP med this morning, stated he doesn't take it if BP is controlled, educated patient on risks of not taking med, verbalized understanding, tolerated meds well by mouth, no complaints of pain, safety precautions remain in place, bedside table and call light left within reach, will continue to monitor patient
[2017-12-08 08:43] VITALS: BP_SYST 101
[2017-12-08] MEDS ORDERED: IPRATROPIUM/ALBUTEROL SULFATE 120 PUFFS/4 GM INH INH SCH (09:00)
[2017-12-08] MEDS ORDERED: FUROSEMIDE 20 MG TABLET PO SCH (09:00)
--- NOTE | 2017-12-08 09:30 | NUR ---
Nutrition Update Tavo Scale 18 noted. Pt admitted for pneumonia and CHF. Diet: cardiac BMI: 23.6 kg/m2 RD to follow per nutrition care standards.
--- NOTE | 2017-12-08 10:53 | NUR ---
Patient Resting in Bed at this time, positioned to his side, removed O2 to assess saturations on room air, no signs of distress, no complaints of pain, safety precautions remain in place, bedside table and call light left within reach, will continue to monitor patient
[2017-12-08 11:42] VITALS: BP_SYST 95
--- NOTE | 2017-12-08 12:30 | NUR ---
Daughter Marcelle Visiting at this time, spoke with her earlier over the phone, stated father has been hospitalized for pneumonia recently, also stated patient went AMA last time he was in the hospital, patient is resting in bed, eyes closed, breathing unlabored on room air, he is positioned to his side, will continue to monitor
--- NOTE | 2017-12-08 13:36 | NUR ---
Patient on Bedside Commode at this time, no complaints of pain, no signs of distress, educated him on use of call light for assistance, verbalized understanding, safety precautions remain in place, bedside table and call light left within reach, will continue to monitor patient
--- NOTE | 2017-12-08 15:45 | NUR ---
Patient Resting in Bed eyes closed, breathing unlabored on nasal cannula, positioned to his side, symmetrical chest expansion, safety precautions in place, call light and bedside table left within reach, will continue to monitor
[2017-12-08 16:00] VITALS: BP_SYST 105
--- NOTE | 2017-12-08 17:59 | NUR ---
Patient Awake and Alert in bed, he is laying down positioned to his side, nasal cannula applied for comfort, no other needs at this time, educated patient on use of call light for assistance, verbalized understanding, safety precautions in place, call light and bedside table left within reach, will continue to monitor
--- NOTE | 2017-12-08 18:50 | NUR ---
Closing Note patient resting in bed, awake and alert, ate dinner, no signs of distress, breathing unlabored, symmetrical chest expansion, Dr. Munoz rounds, provided him with patient's daughter's phone number and requested to call her with updates, verbalized understanding, safety precautions remain in place, will endorse to tool and die technician nurse
[2017-12-08] MEDS ORDERED: DEXTROSE 50% JECT 50 ML DISP.SYRIN IVP PRN ×2 (19:15)
[2017-12-08 19:30] VITALS: BP_SYST 125
--- NOTE | 2017-12-08 19:36 | NUR ---
CONSULTATION PAGED/CALLED Reason for Consultation: CHF Person Who was Notified: ADINA Consulting Physician: Saud WOOD IS FORM BUILDER. Employer Relations Representative Specialty: Ordering Physician: Luis WOOD
--- NOTE | 2017-12-08 20:00 | NUR ---
INITIAL NOTES: BEDSIDE REPORT EARLIER DONE WITH AM RN.PATIENT IN BED AWAKE ALERT ,ORIENTED X3.ON HIS RIGHT SIDE POSITION . ON O2 2 LITERS PER NASAL CANNULA. LIPS DARK COLOR. HAVING MOIST COUGH ,PRODUCTIVE SMALL THIN WHITISH COLOR,GETS SLIGHT SOB AFTER COUGHING. LUNGS WITH SCATTERED CRACKLES . WITH PACEMAKER SINUS, NO ECTOPY. FALL AND ASPIRATION PRECAUTIONS. MONITOR CLOSELY FOR RESPIRATORY DISTRESS.
--- NOTE | 2017-12-08 20:50 | NUR ---
DR. TIM STEWART CALLED FOR CARDIO CONSULT.REPORT GIVEN ABOUT CURRENT PATIENT CONDITIONS. GAVE ORDERS. WILL CARRY THEM OUT PEREZ.
[2017-12-08] MEDS ORDERED: FUROSEMIDE 20 MG/2 ML VIAL IVP SCH (21:00)
--- NOTE | 2017-12-08 21:00 | NUR ---
PATIENT IN BED COUGHING WITH SOB. RT NOTIFIED FOR TREATMENT RT CAME ,BREATHING TREATMENTS GIVEN WITH RELIEF. TOLD PATIENT WILL GIVE IV LASIX TO REMOVE FLUIDS .
--- NOTE | 2017-12-08 21:07 | NUR ---
CONSULTATION PAGED/CALLED Reason for Consultation: PNA Person Who was Notified: MARYBEL Consulting Physician: ELOINA KULKARNI Diesel Engine Mechanic Apprentice Specialty: Ordering Physician:Luis WOOD
[2017-12-08] MEDS: SIMVASTATIN 40 MG TABLET PO SCH (21:14)
--- NOTE | 2017-12-08 21:36 | NUR ---
CONSULTATION PAGED/CALLED Reason for Consultation: RESP DISTRESS Person Who was Notified: BIRGIT Consulting Physician: LORELEI MURRAY IS BOAT LABORER Psych Coordinator Specialty: Ordering Physician: ISRAEL
--- NOTE | 2017-12-08 22:00 | NUR ---
PATIENT STATED FEELS BETTER. BED ALARM ON DUE TO NEEDS TO STAND UP TO VOID.ASSISTED AND STAYED WITH PATIENT BY ART TEACHER.
--- NOTE | 2017-12-08 22:30 | NUR ---
MEDS ADMIN: BLOOD SUGAR 113MG/DL. TAKES PO MEDS Q 5 MINS FOR GOOD ABSORPTION.
--- NOTE | 2017-12-08 22:55 | NUR ---
ABE TAYLOR CALLED FOR INFECTIOUS CONSULT. REPORT GIVEN WITH ORDERS. WILL GIVE ALL ORDERS WHEN READY.
[2017-12-08] MEDS ORDERED: PIPERACILLIN/TAZO 2.25G/DEX-IS 50 ML IV SCH (23:00)
--- NOTE | 2017-12-08 23:35 | NUR ---
ZOS[place] 2.25MG [place] [facility] [place] [facility]CLOTH WORKER. DENIES SOB. SLEEPING ON HIS RIGHT SIDE.
[2017-12-08] MEDS ORDERED: PIPERACILLIN/TAZOBACTAM 2.25 GM VIAL IV ONE (23:37)
--- NOTE | 2017-12-09 | NUR ---
ASSISTED TO STAND UP TO VOID. SHIFT BOSS STAYED WITH PATIENT.
--- NOTE | 2017-12-09 00:13 | NUR ---
CONSULTATION PAGED/CALLED Reason for Consultation: JAIMEE Person Who was Notified: ALLEGRA Consulting Physician: DOCTOR EVERT BRIGGS A IS HOLLOW CORE DOOR FRAME ASSEMBLER Laborer [employer] Maintenance Specialty: Ordering Physician: Luis WOOD
[2017-12-09 00:25] VITALS: BP_SYST 119
--- NOTE | 2017-12-09 00:58 | NUR ---
CONSULTATION PAGED/CALLED Reason for Consultation: CHF Person Who was Notified: OSIEL Consulting Physician: Saud WOOD Garden Consultant Specialty: Ordering Physician: Luis WOOD
--- NOTE | 2017-12-09 02:45 | NUR ---
TRANSFER OF CARE. REPORT GIVE TO MATTEO CARDENAS FOR FURTHER CARE. PATIENT RESTING QUIETELY ON HIS RIGHT SIDE. SALINE LOCK PATENT AND FLUSES GOOD.
--- NOTE | 2017-12-09 02:50 | NUR ---
Received Endorsement of Patient Received endorsement of patient. Patient resting in bed with eyes closed, easily aroused. Patient denies any acute distress or pain at this time. Breathing is even and unlabored. IV site patent/clean/dry. Toileting needs addressed. Call light in hand, fall precautions in place.
--- NOTE | 2017-12-09 05:00 | NUR ---
Nursing Notes Patient resting in bed with eyes closed. No acute distress noted, breathing is even and unlabored. Call light in hand, fall precautions in place. Will continue to monitor.
[2017-12-09] MEDS: PIPERACILLIN/TAZO 2.25G/DEX-IS 50 ML IV SCH ×3 (05:49→21:47)
--- NOTE | 2017-12-09 06:48 | NUR ---
Closing Notes Patient resting in bed with eyes closed, easily aroused. Patient denies any acute distress or pain at this time. Breathing is even and unlabored. IV site patent/clean/dry, no S/S infection/infiltration noted. Needs addressed throughout shift. Call light in hand, fall precautions in place. Will continue to monitor for changes and safety, and endorse all patient care/needs to oncoming nurse.
--- NOTE | 2017-12-09 07:25 | NUR ---
AM ROUNDS: PATIENT LYING ON THE BED.BEDSIDE REPORT GIVEN BY NIGHT NURSE THERESA. PATIENT STATED NOT TO BE DISTURBED,HE WANTS TO SLEEP. LEFT PATIENT TO SLEEP.CALL LIGHT WITH IN REACH. BED LOCKED AT LOWEST POSITION. NO DISTRESS.
[2017-12-09 07:44] LABS: BASOPHILS # (AUTO) 0.1 K/uL (0.0-0.2); BASOPHILS % (AUTO) 1.1 % (0.0-2.0); EOSINOPHILS # (AUTO) 0.1 K/uL (0.0-0.4); EOSINOPHILS % (AUTO) 1.7 % (0.0-4.0); HEMATOCRIT 39.8 % (36-54); HEMOGLOBIN 12.6 g/dL (14.0-18.0); LYMPHOCYTES # (AUTO) 1.2 K/uL (1.0-5.5); LYMPHOCYTES % (AUTO) 24.5 % (20.5-51.5); MEAN CORPUSCULAR HEMOGLOBIN 27 pg (27-31); MEAN CORPUSCULAR HGB CONC 32 % (32-36); MEAN CORPUSCULAR VOLUME 84 fL (79.0-98.0); MONOCYTES # (AUTO) 0.5 K/uL (0.0-1.0); MONOCYTES % (AUTO) 9.7 % (1.7-9.3); PLATELET COUNT (AUTO) 110 K/uL (130-430); RED BLOOD CELL COUNT(AUTO) 4.76 MIL/uL (4.2-6.2); RED CELL DISTRIBUTION WIDTH 15.8 % (9.0-15.0); WHITE BLOOD COUNT (AUTO) 4.9 K/uL (4.8-10.8)
[2017-12-09 08:21] LABS: ALANINE AMINOTRANSFERASE 20 U/L (12-78); ALBUMIN 3.3 g/dL (3.4-4.8); ANION GAP 10 (5-15); ASPARTATE AMINOTRANSFERASE 15 U/L (10-37); C-REACTIVE PROTEIN QUANT 2.4 mg/dL (0-0.5); CALCIUM 9.5 mg/dL (8.4-11.0); CHLORIDE 102 mmol/L (98-107); CREATININE 1.46 mg/dL (0.55-1.30); GLUCOSE 77 mg/dL (70-99); PHOSPHORUS 3.9 mg/dL (2.7-4.5); SODIUM SERUM 138 mmol/L (136-145); TOTAL BILIRUBIN 1.3 mg/dL (0.0-1.0); UREA NITROGEN, BLOOD 27 mg/dL (8-21)
[2017-12-09] MEDS: LISINOPRIL 20 MG TABLET PO SCH (09:00)
--- NOTE | 2017-12-09 09:30 | NUR ---
PO MEDS: DUE PO MEDS GIVEN AND PATIENT TOLERATED IT WELL.NO COMPLICATIONS THIS TIME.
[2017-12-09 09:36] VITALS: BP_SYST 114
[2017-12-09] MEDS ORDERED: FUROSEMIDE 20 MG/2 ML VIAL IVP ONE (09:45)
[2017-12-09] MEDS: TAMSULOSIN HCL 0.4 MG CAP PO SCH ×2 (09:46→21:48)
[2017-12-09] MEDS: DABIGATRAN ETEXILATE MESYLATE 75 MG CAPSULE PO SCH ×2 (09:46→21:49)
[2017-12-09] MEDS: CARVEDILOL 25 MG TABLET (COREG) PO SCH (09:47)
[2017-12-09] MEDS: GLIMEPIRIDE 2 MG TABLET PO SCH (09:47)
[2017-12-09] MEDS: FINASTERIDE 5 MG TABLET (PROSCAR) PO SCH (09:48)
[2017-12-09 10:40] LABS: ERYTHROCYTE SEDIMENTATION RATE 10 MM/HR (0-15)
--- NOTE | 2017-12-09 12:00 | NUR ---
BLOOD SUGAR: BLOOD SUGAR TAKEN,WITH INSULIN COVERAGE GIVEN PER SLIDING SCALE. NO PROBLEM.
[2017-12-09] MEDS: INSULIN REGULAR, HUMAN 100 UNITS/ML, 10 ML VIAL (novoLIN R) SUBCUT PRN (12:05)
--- NOTE | 2017-12-09 14:31 | NUR ---
PHYSICAL THERAPY EVALUATION COMPLETED. PATIENT HAS C/O DIZZINESS. GAIT WITH FWW IS STEADY. NURSE MAY AMBULATE PATIENT WITH THE FWW.
--- NOTE | 2017-12-09 14:34 | NUR ---
CAROTID US: BILATERAL CAROTID US DONE AT THE BEDSIDE ORDERED.
--- NOTE | 2017-12-09 15:08 | NUR ---
CONSULT NEUROLOGY DIZZINESS DR BELCHER [phone] S/W [place] OFFICE
--- NOTE | 2017-12-09 16:36 | NUR ---
RN ROUNDS: PATIENT RESTING ON SIDE LYING. NOT IN ANY DISTRESS.CALL LIGHT WITH IN REACH. BED LOCKED AT LOWEST POSITION.
--- NOTE | 2017-12-09 17:08 | NUR ---
PATIENT REFUSED TO HAVE HIS VITAL SIGNS TAKE RN NOTIFIED
--- NOTE | 2017-12-09 17:15 | NUR ---
BLOOD SUGAR : BLOOD SUGAR =57MG/DL,2 SMALL CUPS OF ORANGE JUICE GIVEN AND TOLERATED BY THE PATIENT.REPEAT BLOOD SUGAR AFTER 30MINS,BLOOD BQJSK=308LP/DL. PATIENT ATE DINNER AND TOLERATED WELL.
--- NOTE | 2017-12-09 19:30 | NUR ---
END OF SHIFT: BEDSIDE REPORT GIVEN TO NIGHT NURSE ALFONZO Burgos NO DISTRESS. CONTINUE TO MONITOR.
[2017-12-09 20:56] VITALS: BP_SYST 129
[2017-12-09] MEDS: FUROSEMIDE 20 MG/2 ML VIAL IVP SCH (21:48)
[2017-12-09] MEDS: SIMVASTATIN 40 MG TABLET PO SCH (21:49)
--- NOTE | 2017-12-09 22:15 | NUR ---
ASSIST OUT OF BED TO REST ROOM patient ambulates with assist unsteady gait , tolerated .
[2017-12-10] VITALS: BP_SYST 118
--- NOTE | 2017-12-10 | NUR ---
ZOSYN 2.25 GM IVPB ADMINISTER as ordered no s/sx of allergic reaction skin rash free dry warm .
--- NOTE | 2017-12-10 02:38 | NUR ---
HOURLY ROUNDING Patient resting on NC @ 2 LPM BED TO LOW POSITION call dee with patient / .
--- NOTE | 2017-12-10 02:41 | NUR ---
PRADAXA 75 MG PO GIVEN FOR BLOOD THINNER , NO ADVERSE REACTION NOTED NO BLEEDING .
--- NOTE | 2017-12-10 03:40 | NUR ---
CURRENT BODY WEIGHT 154.6 LBS HX OF HEART FAILURE BUILT IN BED SCALE .
--- NOTE | 2017-12-10 06:01 | NUR ---
Patient Resting comfort safety measures implemented ZOSYN 2.25 GM IVPB administer & running continue to monitor .
[2017-12-10] MEDS: PIPERACILLIN/TAZO 2.25G/DEX-IS 50 ML IV SCH ×3 (06:41→23:40)
--- NOTE | 2017-12-10 06:42 | NUR ---
REFUSE BLOOD SUGAR , THIS AM .
[2017-12-10 07:22] LABS: ANION GAP 9 (5-15); CALCIUM 9.4 mg/dL (8.4-11.0); CHLORIDE 100 mmol/L (98-107); CREATININE 1.35 mg/dL (0.55-1.30); GLUCOSE 67 mg/dL (70-99); PHOSPHORUS 3.7 mg/dL (2.7-4.5); SODIUM SERUM 135 mmol/L (136-145); UREA NITROGEN, BLOOD 24 mg/dL (8-21)
[2017-12-10 07:27] LABS: BASOPHILS # (AUTO) 0.1 K/uL (0.0-0.2); EOSINOPHILS # (AUTO) 0.1 K/uL (0.0-0.4); EOSINOPHILS % (AUTO) 1.3 % (0.0-4.0); HEMATOCRIT 39.4 % (36-54); HEMOGLOBIN 12.9 g/dL (14.0-18.0); LYMPHOCYTES # (AUTO) 1.4 K/uL (1.0-5.5); LYMPHOCYTES % (AUTO) 25.9 % (20.5-51.5); MEAN CORPUSCULAR HEMOGLOBIN 28 pg (27-31); MEAN CORPUSCULAR HGB CONC 33 % (32-36); MEAN CORPUSCULAR VOLUME 84 fL (79.0-98.0); MONOCYTES # (AUTO) 0.5 K/uL (0.0-1.0); MONOCYTES % (AUTO) 9.5 % (1.7-9.3); NEUTROPHILS # (AUTO) 3.1 K/uL (1.8-7.7); NEUTROPHILS % (AUTO) 62.3 % (40.0-70.0); PLATELET COUNT (AUTO) 123 K/uL (130-430); RED BLOOD CELL COUNT(AUTO) 4.67 MIL/uL (4.2-6.2); RED CELL DISTRIBUTION WIDTH 15.4 % (9.0-15.0); WHITE BLOOD COUNT (AUTO) 5.2 K/uL (4.8-10.8)
[2017-12-10] MEDS: IPRATROPIUM/ALBUTEROL SULFATE 3 ML AMPUL.NEB (DUONEB) INH PRN ×2 (07:39→13:25)
--- NOTE | 2017-12-10 08:08 | NUR ---
INITIAL NOTE PT SITTING UP IN BED, AWAKE, ALERT, RECEIVING BREATHING TREATMENT, BREATHING EVEN AND UNLABORED. IV ANTIBIOTIC INFUSION COMPLETE, IV SITE SALINE LOCKED. PLAN OF CARE AND SAFETY PRECAUTIONS DISCUSSED, PT VERBALIZED UNDERSTANDING, BED ALARM ON, CALL LIGHT WITHIN REACH, WILL MONITOR PT CLOSELY
[2017-12-10 08:13] VITALS: BP_SYST 128
[2017-12-10] MEDS: DABIGATRAN ETEXILATE MESYLATE 75 MG CAPSULE PO SCH ×2 (08:27→20:23)
[2017-12-10] MEDS: FINASTERIDE 5 MG TABLET (PROSCAR) PO SCH (08:27)
[2017-12-10] MEDS: LISINOPRIL 20 MG TABLET PO SCH (08:28)
[2017-12-10] MEDS: TAMSULOSIN HCL 0.4 MG CAP PO SCH ×2 (08:28→20:22)
[2017-12-10] MEDS: CARVEDILOL 25 MG TABLET (COREG) PO SCH (08:29)
[2017-12-10] MEDS: GLIMEPIRIDE 2 MG TABLET PO SCH (08:29)
[2017-12-10] MEDS: FUROSEMIDE 20 MG/2 ML VIAL IVP SCH ×2 (08:30→20:22)
--- NOTE | 2017-12-10 10:00 | NUR ---
ROUNDS PT ASSISTED TO BSC TO URINATE. TOLERATED TRANSFER WELL. RETURNED TO BED, MADE COMFORTABLE. CALL LIGHT PLACED WITHIN REACH, SAFETY PRECAUTIONS IN PLACE, BED ALARM REFUSED, WILL FOLLOW UP
[2017-12-10 10:16] LABS: ERYTHROCYTE SEDIMENTATION RATE 13 MM/HR (0-15)
[2017-12-10] MEDS: INSULIN REGULAR, HUMAN 100 UNITS/ML, 10 ML VIAL (novoLIN R) SUBCUT PRN (11:48)
--- NOTE | 2017-12-10 12:00 | NUR ---
BLOOD SUGAR 292, COVERED PER SLIDING SCALE. PT TUCKED INTO BED, LAYING ON SIDE, NASAL CANULA IN PLACE, AWAITING LUNCH TRAY TO BE PASSED.
[2017-12-10 13:07] VITALS: BP_SYST 126
--- NOTE | 2017-12-10 13:44 | NUR ---
DAUGHTER CHRISTINA CARTER CALLED TO BE UPDATED ON PT STATUS, MADE AWARE THAT MD STATED HE WOULD BE DISCHARGED TODAY, POSSIBLY TOMORROW AND PT HAS A CT CHEST WITH OUT CONTRAST FOR TODAY THAT HAS NOT BEEN COMPLETED YET. DAUGHTER VERBALIZED UNDERSTANDING AND THANKS.
--- NOTE | 2017-12-10 15:50 | NUR ---
F/U NEUROLOGY CONSULT DIZZINESS DR BELCHER [phone] S/W [place] OFFICE
--- NOTE | 2017-12-10 16:25 | NUR ---
BLOOD SUGAR 55, PT ASYMPTOMATIC, RESTING BUT EASILY AROUSED, ABLE TO RESPOND, NO S/S OF ACUTE DISTRESS, PT PROVIDED WITH SMALL CANDY AND TOLD TO SIP ON SOME ORANGE JUICE, WILL REASSESS AT 1640 Addendum: 12/10/17 at 1644 by Shelli Huitron RN BLOOD SUGAR AT 1640, 63. PT UP, ALERT, DENIES ANY S/S OF HYPOGLYCEMIA, WILL FOLLOW UP WITH BLOOD SUGAR CHECK AND DINNER.
--- NOTE | 2017-12-10 16:53 | NUR ---
patient refused to have his vitals taken .rn notified .
--- NOTE | 2017-12-10 17:16 | NUR ---
BLOOD SUGAR REASSESSMENT #2, 94 WNL PT STATES HE IS HUNGRY, WHEN IS DINNER COMING, PT MADE AWARE THAT TRAYS ARE IN THE PROCESS OF BEING PASSED, WILL GIVE PT HIS TRAY.
--- NOTE | 2017-12-10 18:33 | NUR ---
CLOSING NOTE PT SITTING TO SIDE OF BED, AWAKE, ALERT, NO S/S OF ACUTE DISTRESS OR PAIN. NASAL CANULA IN PLACE. ALL NEEDS ATTENDED TO THROUGHOUT SHIFT, SAFETY PRECAUTIONS MAINTAINED, PT STILL REFUSES BED ALARM. CALL LIGHT WITHIN REACH, WILL GIVE REPORT TO FOLLOWING SHIFT
--- NOTE | 2017-12-10 19:56 | NUR ---
Opening note Patient in ed resting. No acute distress or SOB noted at this time. Patient denies any pain at this time. No leg pain. bed in lowest position and bed alarm on and call light with patient.
[2017-12-10] MEDS: SIMVASTATIN 40 MG TABLET PO SCH (20:23)
--- NOTE | 2017-12-10 20:31 | NUR ---
Patient refused to have blood sugar tested. Patient stated that he does not have any blood sugar problems.
--- NOTE | 2017-12-10 21:30 | NUR ---
TRANSFER OF CARE: RECEIVED REPORT FROM ARUN BURNETT.PATIENT SEEN IN BED ON HIS RIGHT SIDE POSITION WITH OXYGEN ON RESTING QUITELY BUT EASILY AWAKENS.DENIES SOB THIS TIME. BED ALARM ON. BED IN LOW POSITION.
--- NOTE | 2017-12-10 22:45 | NUR ---
BED ALARMED.PATIENT GOT UP TO VOID VIA BEDSIDE COMMODE SINCE HAS DIFFICULTY URINATING DUE TO PROSTATE PROBLEM. HAD EXERTIONAL DYSPNEA ON ROOM AIR AFTER BSC TO BED. RT CALLED TO GIVE BREATHING TREATMENTS. CAME.
[2017-12-10 23:29] VITALS: BP_SYST 127
[2017-12-11] MEDS: IPRATROPIUM/ALBUTEROL SULFATE 3 ML AMPUL.NEB (DUONEB) INH PRN ×2 (01:08→09:13)
--- NOTE | 2017-12-11 02:00 | NUR ---
BED ALARMED. PATIENT GOT UP TO VOID VIA BSC. LET HIM USE OXYGEN 2 LITERS PER N/C TO PREVENT SOB,RECEPTIVE OF ADVICE.
--- NOTE | 2017-12-11 04:05 | NUR ---
ROUNDS: PATIENT SLEEPING ON HIS RT. SIDE COMFORTABLY.WITH OXYGEN.
--- NOTE | 2017-12-11 05:40 | NUR ---
REFUSE BLOOD DRAW FROM [employer].
--- NOTE | 2017-12-11 06:35 | NUR ---
closing: blood sugar 73.orange juice with sugar given. up to bsc to urinate. sat for a while. cxr done, changed all linens. washed face by himself in the sink. all needs met. no acute cardiopulmonary distress whole shift.
[2017-12-11] MEDS: PIPERACILLIN/TAZO 2.25G/DEX-IS 50 ML IV SCH ×3 (06:51→21:12)
--- NOTE | 2017-12-11 07:42 | NUR ---
opening note pt laying in bed with eyes closed- equal chest rise noted. no distress noted. call light visibly within reach. zosyn infusing at this time, noted. bed alarm in place with bed in the lowest position.
[2017-12-11 08:00] VITALS: BP_SYST 107
[2017-12-11] MEDS: CARVEDILOL 25 MG TABLET (COREG) PO SCH (08:00)
[2017-12-11] MEDS: FUROSEMIDE 20 MG/2 ML VIAL IVP SCH ×2 (08:59→21:11)
[2017-12-11] MEDS: LISINOPRIL 20 MG TABLET PO SCH (08:59)
[2017-12-11] MEDS: IPRATROPIUM/ALBUTEROL SULFATE 3 ML AMPUL.NEB (DUONEB) INH SCH ×3 (09:45→20:00)
[2017-12-11] MEDS: TAMSULOSIN HCL 0.4 MG CAP PO SCH ×2 (10:22→21:12)
[2017-12-11] MEDS: GLIMEPIRIDE 2 MG TABLET PO SCH (10:22)
[2017-12-11] MEDS: FINASTERIDE 5 MG TABLET (PROSCAR) PO SCH (10:22)
[2017-12-11] MEDS: DABIGATRAN ETEXILATE MESYLATE 75 MG CAPSULE PO SCH ×2 (10:55→21:13)
[2017-12-11] MEDS: INSULIN REGULAR, HUMAN 100 UNITS/ML, 10 ML VIAL (novoLIN R) SUBCUT PRN (11:04)
--- NOTE | 2017-12-11 11:06 | NUR ---
2 units regular insulin given for blood sugar 174. no distress noted. safety maintained.
[2017-12-11 12:00] VITALS: BP_SYST 122
--- NOTE | 2017-12-11 13:37 | NUR ---
Case mgt: Rec'd voicemail from Kennedi at [facility] [phone] requesting call back -I called her back and left message to call me RN
--- NOTE | 2017-12-11 13:44 | NUR ---
med pass ivpb zosyn hung at this time. safety maintained.
[2017-12-11 13:57] VITALS: BP_SYST 92
[2017-12-11] MEDS ORDERED: LIDOCAINE 1%, 20 ML MDV 20 ML ONE (14:17)
--- NOTE | 2017-12-11 14:52 | NUR ---
Case mgt: Rec'd vm left by Kennedi at [facility] at 1410 on main cm ph# (not my direct ph# given to Kennedi at [facility] at [phone])-she was requesting a call back to her at [phone]--I called her back and left 2nd message that I was returning her call again, and to please call me on my direct cm#[phone]--JOSEF DIAS Addendum: 12/11/17 at 1455 by China Boateng RN Correction--I called Kennedi at [facility] at ph#[phone]--JOSEF DIAS
[2017-12-11 16:05] VITALS: BP_SYST 117
--- NOTE | 2017-12-11 17:02 | NUR ---
WOUND EVALUATION: Wound Consult received from Dr. Jean Carlos Munoz. Thank you, Dr. Munoz, for the consult. Patient received in a Mono Bed with an IsoFlex FILEMON mattress with low air-loss therapy initiated, awake, alert, oriented. Patient is able to turn in bed independently. Tavo Score is an 18. Past Medical History: COPD, Pneumonia, Coronary Artery Disease, Hypertension, Diabetes Mellitus, Dyslipidemia, Cataracts, Pacemaker placement, BPH. Recent Labs: WBC 5.2, RBC 4.67, Hemoglobin 12.9, hematocrit 39.4, platelets 123, Albumin 3.3, BUN 24, creatinine 1.35, POC Glucose 174. Microbiology: Blood culture results 2 in progress. Intrinsic factors that delay wound healing: COPD, Coronary Artery Disease, Diabetes Mellitus. Extrinsic factors that delay wound healing: Decreased mobility. Wound Assessment: 1. Right lateral hip near greater trochanter: Chronic unstageable pressure ulcer, present on admission. Wound site has 95% yellow eschar, 5% black eschar. No odor, no drainage. Periwound is erythematous. Wound measures 1.3 cm x 1.0 cm. Cleanse wound with normal saline. Place SurePrep onto malinda-wound. Cover with foam dressing. Perform wound care daily, and as needed for dressing soiling or dislodgement. 2. Left lateral hip near greater trochanter: Blanchable erythema, present on admission. Area barely blanches, and must be held down for about 5 seconds to obtain blanching. Recommend: Cover involved area with foam dressing. Do not place patient on involved area at any time. 3. Bilateral heels: Blanchable erythema, present on admission. Recommend: Elevate, offload and float bilateral heels with one pillow lengthwise under each extremity at all times. Also recommend: Reposition patient side to side only every 2 hours with pillow wedge pelvic tilt, off-load pressure areas with pillows for pressure re-distribution. Elevate, offload and float bilateral heels with one pillow lengthwise under each extremity at all times. Perform skin care and monitor skin integrity Q shift. Use moisture barrier cream on buttocks and other moisture susceptible areas QID and as needed for soiling. Maintain patient on a low air-loss mattress.
--- NOTE | 2017-12-11 17:12 | NUR ---
d50 given for pt blood sugar 62. only 40 mls given, pt refused 10 ml. pt sated he feels weak. no other distress noted. safety maintained.
--- NOTE | 2017-12-11 18:51 | NUR ---
closing note all needs met through shift. safety maintained. will endorse care to nightclub manager.
--- NOTE | 2017-12-11 19:40 | NUR ---
ROUNDS PATIENT RESTING COMFORTABLY IN BED, VITALS STABLE, NO PAIN AND DISCOMFORT AT THIS TIME. ASSESSMENT DONE AND DOCUMENTED. SEE FLOWSHEET. NEEDS ATTENDED TO. SAFETY AND FALL PRECAUTION MEASURES IN PLACED. BED ALARM ON. CALL LIGHT PLACED WITHIN REACH.
[2017-12-11] MEDS: SIMVASTATIN 40 MG TABLET PO SCH (21:12)
--- NOTE | 2017-12-12 00:05 | NUR ---
PATIENT RESTING: Patient resting quietly. No acute distress noted. Vital signs within normal range.
--- NOTE | 2017-12-12 02:15 | NUR ---
ROUNDS PATIENT ASLEEP, NO SOB NOR PAIN AND DISCOMFORT NOTED. WILL CONTINUE TO MONITOR.
[2017-12-12 03:25] LABS: BF APPEARANCE UNSPUN SLIGHTLY HAZY (CLEAR); BODY FLUID SOURCE/ TYPE PLEURAL; SOURCE/TYPE ,BODY FLUID PLEURAL
[2017-12-12 03:26] LABS: BODY FLUID TOTAL VOLUME 1010 mL; RBC, BODY FLUID 361 /uL; WBC, BODY FLUID 96 /uL
[2017-12-12 03:31] LABS: EOSINOPHIL, BODY FLUID 0 %
[2017-12-12 03:39] LABS: NEUTROPHIL, BODY FLUID 32 %
[2017-12-12 03:40] LABS: LYMPHOCYTES, BODY FLUID 45 %; MONOCYTES,BODY FLUID 23 %
[2017-12-12 03:46] LABS: BODY FLUID OTHER CELLS MANY %
--- NOTE | 2017-12-12 04:15 | NUR ---
PATIENT RESTING: Patient resting quietly. No acute distress noted. Vital signs within normal range.
[2017-12-12] MEDS: PIPERACILLIN/TAZO 2.25G/DEX-IS 50 ML IV SCH ×2 (05:21→14:33)
[2017-12-12 06:48] LABS: BASOPHILS % (AUTO) 0.3 % (0.0-2.0); EOSINOPHILS % (AUTO) 0.5 % (0.0-4.0); HEMATOCRIT 41.3 % (36-54); HEMOGLOBIN 13.3 g/dL (14.0-18.0); LYMPHOCYTES # (AUTO) 1.5 K/uL (1.0-5.5); LYMPHOCYTES % (AUTO) 20.5 % (20.5-51.5); MEAN CORPUSCULAR HEMOGLOBIN 27 pg (27-31); MEAN CORPUSCULAR HGB CONC 32 % (32-36); MEAN CORPUSCULAR VOLUME 84 fL (79.0-98.0); MONOCYTES # (AUTO) 0.5 K/uL (0.0-1.0); MONOCYTES % (AUTO) 6.8 % (1.7-9.3); NEUTROPHILS # (AUTO) 5.3 K/uL (1.8-7.7); NEUTROPHILS % (AUTO) 71.9 % (40.0-70.0); PLATELET COUNT (AUTO) 135 K/uL (130-430); RED CELL DISTRIBUTION WIDTH 15.7 % (9.0-15.0); WHITE BLOOD COUNT (AUTO) 7.3 K/uL (4.8-10.8)
--- NOTE | 2017-12-12 06:50 | NUR ---
CLOSING NOTES PATIENT AWAKE, VITALS STABLE, NO PAIN AT THIS TIME. ALL NEEDS ATTENDED TO. SAFETY MEASURES MAINTAINED. CALL LIGHT PLACED WITHIN REACH.
[2017-12-12 07:06] LABS: ANION GAP 8 (5-15); C-REACTIVE PROTEIN QUANT 3.3 mg/dL (0-0.5); CALCIUM 9.4 mg/dL (8.4-11.0); CHLORIDE 102 mmol/L (98-107); CREATININE 1.28 mg/dL (0.55-1.30); GLUCOSE 61 mg/dL (70-99); PHOSPHORUS 3.5 mg/dL (2.7-4.5); POTASSIUM 3.7 mmol/L (3.5-5.1); SODIUM SERUM 136 mmol/L (136-145); UREA NITROGEN, BLOOD 21 mg/dL (8-21)
--- NOTE | 2017-12-12 07:17 | NUR ---
opening note pt laying in bed with eyes closed- equal chest rise noted. call light visibly within reach, bed alarm in place with bed in the lowest position.
[2017-12-12] MEDS: CARVEDILOL 25 MG TABLET (COREG) PO SCH (08:00)
[2017-12-12 08:15] VITALS: BP_SYST 109
[2017-12-12] MEDS: TAMSULOSIN HCL 0.4 MG CAP PO SCH (08:55)
[2017-12-12] MEDS: GLIMEPIRIDE 2 MG TABLET PO SCH (08:55)
[2017-12-12] MEDS: FINASTERIDE 5 MG TABLET (PROSCAR) PO SCH (08:56)
[2017-12-12] MEDS: FUROSEMIDE 20 MG/2 ML VIAL IVP SCH (08:58)
[2017-12-12] MEDS: LISINOPRIL 20 MG TABLET PO SCH (08:59)
[2017-12-12] MEDS: DABIGATRAN ETEXILATE MESYLATE 75 MG CAPSULE PO SCH (09:02)
[2017-12-12] MEDS: IPRATROPIUM/ALBUTEROL SULFATE 3 ML AMPUL.NEB (DUONEB) INH SCH (09:40)
--- NOTE | 2017-12-12 10:26 | NUR ---
AFTER MULTIPLE ATTEMPTS PATIENT REFUSED THERAPY, STATES FEELING TIRED, NURSING MADE AWARE.
[2017-12-12 10:33] LABS: BODY FLUID GLUCOSE 136 mg/dL
[2017-12-12 10:34] LABS: BODY FLUID TOTAL PROTEIN 1.8 g/dL
[2017-12-12 10:37] LABS: ERYTHROCYTE SEDIMENTATION RATE 14 MM/HR (0-15)
--- NOTE | 2017-12-12 12:04 | NUR ---
pt blood sugar 151, pt refusing 2 units of insulin at this time.
[2017-12-12 12:25] VITALS: BP_SYST 112
[2017-12-12] MEDS ORDERED: METR500T PO (13:10)
[2017-12-12] MEDS ORDERED: LEVO250T2 PO (13:10)
[2017-12-12 13:50] VITALS: BP_SYST 112
--- NOTE | 2017-12-12 13:53 | NUR ---
SPOKE WITH DR MURRAY- PT CLEARED FOR DISCHARGE. SPOKE WITH DR FANNIE BARGER STATED PT IS CLEARED FOR DISCHARGE.
[2017-12-12 14:21] LABS: BODY FLUID COLOR YELLOW (LT YELLOW)
--- NOTE | 2017-12-12 15:15 | NUR ---
pcp appointment CHF protocol apt. saturday12/18/17 @0900 daughter Marcelle Davis aware/ instructions given w/ office number.
--- NOTE | 2017-12-12 15:29 | NUR ---
D/C Patient Patient given medication reconciliation form and D/C instructions. Exit Care provided. Patient verbalized understanding. MD discussed with patient the results and treatment provided. Ambulatory with steady gait for discharge to home/ taken via whelchair. Patient in stable condition, ID band removed. IV catheter removed, intact and dressing applied, no active bleeding. Rx of LEVAQUIN AND FLAGYL given. Patient educated on pain management. All belongings sent with patient.
--- NOTE | 2017-12-24 11:01 | NUR ---
Discharge Follow Up Phone Call Metallography Teacher phoned patient, , on 12/19/17 but was unable to reach patient. Left a voicemail with patient's daughter, Susan [phone], with offer of assistance and Social Service contact information. Patient was readmitted on 12/23/17.
== END 2017-12-12 14:20 | disposition home or self-care (01) | DRG 177 ==
LOC: SED 18:00 → STU 21:33
PROVIDERS: ADMIT Preventive Medicine Preventive Medicine/Occupational Environmental Medicine; ATTEND Preventive Medicine Preventive Medicine/Occupational Environmental Medicine
PROC: 0W993ZZ Drainage of Right Pleural Cavity, Percutaneous Approach (ICD-10-PCS; principal; 2017-12-11)
DX: J69.0 Pneumonitis due to inhalation of food and vomit (principal); J96.00 Acute respiratory failure, unspecified whether with hypoxia or hypercapnia; I50.43 Acute on chronic combined systolic (congestive) and diastolic (congestive) heart failure; N17.9 Acute kidney failure, unspecified; I13.0 Hypertensive heart and chronic kidney disease with heart failure and stage 1 through stage 4 chronic kidney disease, or unspecified chronic kidney disease; J44.0 Chronic obstructive pulmonary disease with (acute) lower respiratory infection; R17 Unspecified jaundice; E87.1 Hypo-osmolality and hyponatremia; J44.1 Chronic obstructive pulmonary disease with (acute) exacerbation; I42.9 Cardiomyopathy, unspecified; E78.5 Hyperlipidemia, unspecified; E11.36 Type 2 diabetes mellitus with diabetic cataract; E11.65 Type 2 diabetes mellitus with hyperglycemia; D69.6 Thrombocytopenia, unspecified; E11.22 Type 2 diabetes mellitus with diabetic chronic kidney disease; E11.51 Type 2 diabetes mellitus with diabetic peripheral angiopathy without gangrene; E83.41 Hypermagnesemia; F17.200 Nicotine dependence, unspecified, uncomplicated; G47.00 Insomnia, unspecified; I08.0 Rheumatic disorders of both mitral and aortic valves; I25.10 Atherosclerotic heart disease of native coronary artery without angina pectoris; I27.20 Pulmonary hypertension, unspecified; I48.91 Unspecified atrial fibrillation; N40.0 Benign prostatic hyperplasia without lower urinary tract symptoms; N18.3 Chronic kidney disease, stage 3 (moderate); D63.1 Anemia in chronic kidney disease; I27.21 Secondary pulmonary arterial hypertension; Z95.0 Presence of cardiac pacemaker; Z95.1 Presence of aortocoronary bypass graft; Z79.899 Other long term (current) drug therapy
CPT/HCPCS: 32555; 36415; 71045; 71250-TC; 80048; 80053; 82947-TC; 82962; 83605; 83735-TC; 83880; 84100-TC; 84157-TC; 84484; 85025; 85651-TC; 86140; 87040-TC; 87070-TC; 87101; 87116; 88108; 88305; 89051-TC; 89060-TC; 93005; 93306; 93880; 94640; 94760; 96361; 96365; 96375; 97110-GP; 97530-GP; 99285; C1729; J1815; J1940; J2001; J2543; J7030; J7050; J7620; Q0162